=== PATIENT | female | born 1965 | race Caucasian/White ===

== ENCOUNTER → 2017-12-01 | Outpatient (CLI) | payer OTHER ==
[~2017-12-01] VITALS: Ht 157.5 cm; Wt 54.4 kg
[~2017-12-01] MED LIST: VITAMIN D2000 UNI1 PO; WELLBUTRIN SR150 MG PO
== END | disposition home or self-care (01) ==
LOC: AMB 13:09
DX: Z12.11 Encounter for screening for malignant neoplasm of colon (principal); R10.13 Epigastric pain
CPT/HCPCS: J2250

== ENCOUNTER → 2017-12-09 | Outpatient (CLI) | payer OTHER | END | disposition home or self-care (01) | LOC: CDC 13:57 | DX: Z01.810 Encounter for preprocedural cardiovascular examination (principal) | CPT/HCPCS: 93000 ==

== ENCOUNTER 2017-12-23 05:28 | Day surgery (SDC) | payer OTHER ==
[~2017-12-23] VITALS: Ht 157.5 cm; Wt 54.0 kg
[~2017-12-23 05:28] MED LIST changes: +MAGNESIUM27 MG PO; +VITAMIN D32000 UNI1 PO
[2017-12-23 06:57] VITALS: BP 110/71
[2017-12-23] MEDS ORDERED: HYDROCODON-ACE1 EAC7 PO (08:42)
[2017-12-23 10:02] VITALS: BP 133/69
== END 2017-12-23 11:20 | disposition home or self-care (01) ==
LOC: SDC
PROC: 0FT44ZZ Resection of Gallbladder, Percutaneous Endoscopic Approach (ICD-10-PCS; principal; 2017-12-23)
PROC: 0FN44ZZ Release Gallbladder, Percutaneous Endoscopic Approach (ICD-10-PCS; principal; 2017-12-23)
PROC: 0DN94ZZ Release Duodenum, Percutaneous Endoscopic Approach (ICD-10-PCS; principal; 2017-12-23)
DX: K80.10 Calculus of gallbladder with chronic cholecystitis without obstruction (principal); K66.0 Peritoneal adhesions (postprocedural) (postinfection); F98.8 Other specified behavioral and emotional disorders with onset usually occurring in childhood and adolescence; Z80.3 Family history of malignant neoplasm of breast; Z88.2 Allergy status to sulfonamides
CPT/HCPCS: 88304; J0690; J1100; J1170; J1885; J2250; J2405; J3010; J7120; Q0175; S0020